=== PATIENT | female | born 1940 | race Caucasian/White ===

== ENCOUNTER 2018-02-16 10:33 | Inpatient (IN) | payer MEDICARE ==
[~2018-02-16] VITALS: Ht 165.1 cm; Wt 71.3 kg
[~2018-02-16 10:33] MED LIST: ADVAIR HFA 115-12 GM IH; CLONAZEPAM1 MG PO; COMBIVENT RESPIM4 GM IH; CYMBALTA30 MG PO; LEVAQUIN500 MG PO; MIRTAZAPINE15 MG PO; OMEPRAZOLE40 MG PO; PREDNISONE5 MG PO; VERAPAMIL ER120 MG PO
[2018-02-16] MEDS ORDERED: ALBUTEROL/IPRATROPIUM 3 ML NEB NEB ONE (10:45)
[2018-02-16] MEDS ORDERED: ALBUTEROL SULF 0.083% NEB SOLN 3 ML NEB NEB STA (11:08)
[2018-02-16] MEDS ORDERED: IPRATROPIUM BROMIDE 0.02% 2.5 ML NEB NEB STA (11:08)
[2018-02-16 11:23] LABS: BASOPHILS % 0.1 % (0.0-1.0); HEMATOCRIT 42.8 % (34.2-44.1); HEMOGLOBIN 14.9 g/dL (12.0-16.0); LYMPHOCYTES # (AUTO) 1.9 (1.0-3.2); LYMPHOCYTES % 28.6 % (18.0-39.1); MEAN CORPUSCULAR HGB CONC 34.8 g/dL (31-35); MEAN CORPUSCULAR VOLUME 89.2 fL (81-99); MONOCYTES # (AUTO) 0.6 (0.2-0.8); MONOCYTES % 9.4 % (4.4-11.3); NEUTROPHILS # (AUTO) 4.1 (2.1-6.9); NEUTROPHILS % 61.6 % (38.7-80.0); PLATELET COUNT 181 x10e3/uL (140-360); RED CELL DISTRIBUTION WIDTH 12.8 % (11.7-14.4)
[2018-02-16 11:27] LABS: INR 1.02; PROTHROMBIN TIME 12.6 seconds (11.9-14.5)
[2018-02-16] MEDS ORDERED: METHYLPREDNISOLONE SOD SUCC 125 MG/2ML VIAL IV ONE (11:30)
[2018-02-16 11:34] LABS: ALBUMIN 3.9 g/dL (3.5-5.0); ALBUMIN/GLOBULIN RATIO 1.1 (0.8-2.0); ANION GAP 12.1 mmol/L (8-16); CALCIUM 9.8 mg/dL (8.4-10.2); CREATININE, SERUM 0.93 mg/dL (0.57-1.11); POTASSIUM 4.1 mmol/L (3.5-5.1)
[2018-02-16 11:41] LABS: CREATINE KINASE MB 3.6 ng/mL (0-5.0)
[2018-02-16 11:57] LABS: LYMPHOCYTES % (MANUAL) 15 % (19-48); MONOCYTES % (MANUAL) 7 % (3.4-9.0); NEUTROPHILS % (MANUAL) 70 % (40-74)
[2018-02-16 11:58] LABS: ANISOCYTOSIS SLIGHT; PLATELET ESTIMATE ADEQUATE; PLATELET MORPHOLOGY COMMENT NORMAL; POIKILOCYTOSIS SLIGHT; RBC MORPHOLOGY COMMENT NORMAL
--- NOTE | 2018-02-16 12:21 | Diagnostic Imaging Report ---
PROCEDURE: CHEST SINGLE (PORTABLE) COMPARISON: Patients [facility], DX, CHEST 2 VIEWS, 03/21/2017, 14:14. INDICATIONS: SHORTNESS OF BREATH, COPD FINDINGS: LUNGS: No consolidations or edema. The lungs are hyperexpanded. PLEURA: No effusions or pneumothorax. HEART \T\ MEDIASTINUM: The heart is within normal size-limits. Calcification within the aortic knob. BONES \T\ SOFT TISSUES: No acute findings. CONCLUSION: No acute thoracic abnormality. Raheel Gilliam D.O. Dictated by: Raheel Gilliam D.O. on 02/16/2018 at 12:21 Electronically approved by: Raheel Gilliam D.O. on 02/16/2018 at 12:21
[2018-02-16] MEDS ORDERED: LEVOFLOXACIN 500MG/D5W 100ML IV SCH (12:45)
[2018-02-16] MEDS ORDERED: LEVOFLOXACIN 500MG/D5W 100ML 100 ML IV SCH (13:00)
--- OUTSIDE RECORDS SUMMARY | 2018-02-16 13:44 | XMS REPORT ---
[facility] Address Unknown Phone Unavailable Care Team Providers Care Assistant Quality Manager Name Role Phone FELIPE BARNES Unavailable Unavailable Problems This patient has no known problems. Allergies, Adverse Reactions, Alerts This patient has no known allergies or adverse reactions. Medications This patient has no known medications. Results Test Description Test Time Test Comments Text Results Atomic Results Result Comments CHEST SINGLE (PORTABLE) [place] [address] Patient Name: SHERRY GRAMAJO MR #: [id number] : 1940 Age/Sex: 77/F Req #: [id number] Adm Physician: Ordered by: FELIPE BARNES MD Report #: [id number] Location: ER Room/Bed: Procedure: [id number] DX/CHEST SINGLE (PORTABLE) Exam Date: 02/16/18 Exam Time: 1125 REPORT STATUS: Signed PROCEDURE: CHEST SINGLE (PORTABLE) COMPARISON: [facility], DX, CHEST 2 VIEWS , 03/21/2017, 14:14. INDICATIONS: SHORTNESS OF BREATH, COPD FINDINGS: LUNGS: No consolidations or edema. The lungs are hyperexpanded. PLEURA: No effusions or pneumothorax. HEART T MEDIASTINUM: The heart is within normal size-limits. Calcification within the aortic knob. BONES T SOFT TISSUES: No acute findings. CONCLUSION: No acute thoracic abnormality. Davian Gilliam D.O. Dictated by: Davian Gilliam D.O. on 02/16/2018 at 12:21 Electronically approved by: Davian Gilliam D.O. on 02/16/2018 at 12:21 Dictated By: DAVIAN GILLIAM DO 1221 Transcribed By: PACO on 02/16/18 1221 COPY TO: FELIPE BARNES MD
[2018-02-16] MEDS ORDERED: METHYLPREDNISOLONE SOD SUCC 125 MG/2ML VIAL IV SCH (14:00)
[2018-02-16] MEDS ORDERED: ZOLPIDEM TARTRATE 10 MG TAB PO PRN (14:45)
[2018-02-16] MEDS: DOXYCYCLINE 100MG/NS 100ML 100 ML IV SCH (15:20)
[2018-02-16] MEDS: ALBUTEROL/IPRATROPIUM 3 ML NEB NEB SCH ×3 (19:40→22:55)
[2018-02-16] MEDS: FLUTICASONE/SALMETEROL 115/21 12 GM AERO IH SCH (21:39)
[2018-02-16] MEDS: METHYLPREDNISOLONE SOD SUCC 125 MG/2ML VIAL IV SCH (21:51)
[2018-02-16] MEDS: HEPARIN SOD (PORCINE) 5,000 UNIT/ML VIAL SC SCH (21:51)
[2018-02-16 22:22] LABS: CREATINE KINASE 63 IU/L (29-168)
[2018-02-17] VITALS (9 sets, daily range): BP systolic 126–157; BP diastolic 68–98
[2018-02-17] MEDS: ALBUTEROL/IPRATROPIUM 3 ML NEB NEB SCH ×6 (00:02→19:30)
[2018-02-17] MEDS: DOXYCYCLINE 100MG/NS 100ML 100 ML IV SCH ×2 (04:05→15:10)
[2018-02-17] MEDS ORDERED: SODIUM CHLORIDE 0.9% 250ML 250 ML ONE (04:14)
[2018-02-17 06:29] LABS: BASOPHILS % 0.2 % (0.0-1.0); HEMATOCRIT 40.8 % (34.2-44.1); HEMOGLOBIN 13.6 g/dL (12.0-16.0); LYMPHOCYTES # (AUTO) 0.7 (1.0-3.2); LYMPHOCYTES % 14.4 % (18.0-39.1); MEAN CORPUSCULAR HEMOGLOBIN 30.3 pg (28-32); MEAN CORPUSCULAR HGB CONC 33.3 g/dL (31-35); MEAN CORPUSCULAR VOLUME 90.9 fL (81-99); MONOCYTES # (AUTO) 0.1 (0.2-0.8); MONOCYTES % 1.6 % (4.4-11.3); NEUTROPHILS # (AUTO) 4.3 (2.1-6.9); NEUTROPHILS % 83.6 % (38.7-80.0); PLATELET COUNT 162 x10e3/uL (140-360); RED BLOOD COUNT 4.49 x10e6/uL (3.6-5.1); RED CELL DISTRIBUTION WIDTH 12.8 % (11.7-14.4)
[2018-02-17 06:57] LABS: CREATINE KINASE 57 IU/L (29-168)
[2018-02-17 07:34] LABS: ANION GAP 14.9 mmol/L (8-16); CALCIUM 9.5 mg/dL (8.4-10.2); CREATININE, SERUM 0.95 mg/dL (0.57-1.11); POTASSIUM 4.9 mmol/L (3.5-5.1)
[2018-02-17 07:46] LABS: LYMPHOCYTES % (MANUAL) 14 % (19-48); MONOCYTES % (MANUAL) 1 % (3.4-9.0); NEUTROPHILS % (MANUAL) 84 % (40-74)
[2018-02-17 07:49] LABS: PLATELET ESTIMATE ADEQUATE; PLATELET MORPHOLOGY COMMENT NORMAL; RBC MORPHOLOGY COMMENT NORMAL
[2018-02-17] MEDS: DULOXETINE HCL 30 MG DELAYED RELEASE PO SCH (08:56)
[2018-02-17] MEDS: METHYLPREDNISOLONE SOD SUCC 125 MG/2ML VIAL IV SCH ×2 (08:56→20:59)
[2018-02-17] MEDS: VERAPAMIL HCL 120 MG TABSR PO SCH (08:56)
[2018-02-17] MEDS: PANTOPRAZOLE SOD 40 MG TABEC PO SCH (08:56)
[2018-02-17] MEDS: HEPARIN SOD (PORCINE) 5,000 UNIT/ML VIAL SC SCH ×2 (08:57→21:01)
[2018-02-17] MEDS: FLUTICASONE/SALMETEROL 115/21 12 GM AERO IH SCH ×2 (08:58→17:00)
[2018-02-17] MEDS ORDERED: VERAPAMIL HCL 120 MG TABSR PO SCH (09:00)
[2018-02-17] MEDS: CLONAZEPAM 1 MG TAB PO PRN (20:59)
[2018-02-18] VITALS (9 sets, daily range): BP systolic 116–162; BP diastolic 68–98
[2018-02-18] MEDS: GUAIFENESIN/CODEINE 10 ML CUP PO PRN ×2 (01:07→20:03)
[2018-02-18] MEDS: DOXYCYCLINE 100MG/NS 100ML 100 ML IV SCH ×2 (03:23→15:20)
[2018-02-18] MEDS: ALBUTEROL/IPRATROPIUM 3 ML NEB NEB SCH ×6 (03:28→22:55)
[2018-02-18] MEDS: FLUTICASONE/SALMETEROL 115/21 12 GM AERO IH SCH ×3 (08:32→09:00)
[2018-02-18] MEDS: PANTOPRAZOLE SOD 40 MG TABEC PO SCH (08:58)
[2018-02-18] MEDS: DULOXETINE HCL 30 MG DELAYED RELEASE PO SCH (08:58)
[2018-02-18] MEDS: HEPARIN SOD (PORCINE) 5,000 UNIT/ML VIAL SC SCH ×2 (08:58→20:13)
[2018-02-18] MEDS: METHYLPREDNISOLONE SOD SUCC 125 MG/2ML VIAL IV SCH ×2 (08:58→20:13)
[2018-02-18] MEDS: VERAPAMIL HCL 120 MG TABSR PO SCH (08:58)
[2018-02-18] MEDS: CLONAZEPAM 1 MG TAB PO PRN (20:48)
[2018-02-19] MEDS: DOXYCYCLINE 100MG/NS 100ML 100 ML IV SCH ×2 (02:16→14:42)
[2018-02-19] MEDS: ALBUTEROL/IPRATROPIUM 3 ML NEB NEB SCH ×6 (02:45→23:10)
[2018-02-19 04:07] VITALS: BP 148/74
[2018-02-19 08:19] VITALS: BP 145/72
[2018-02-19 08:20] VITALS: BP 145/72
[2018-02-19] MEDS: FLUTICASONE/SALMETEROL 115/21 12 GM AERO IH SCH ×2 (09:00→17:28)
[2018-02-19] MEDS: VERAPAMIL HCL 120 MG TABSR PO SCH (09:10)
[2018-02-19] MEDS: PANTOPRAZOLE SOD 40 MG TABEC PO SCH (09:10)
[2018-02-19] MEDS: DULOXETINE HCL 30 MG DELAYED RELEASE PO SCH (09:10)
[2018-02-19] MEDS: METHYLPREDNISOLONE SOD SUCC 125 MG/2ML VIAL IV SCH ×2 (09:10→21:33)
[2018-02-19] MEDS: HEPARIN SOD (PORCINE) 5,000 UNIT/ML VIAL SC SCH ×2 (09:11→21:33)
[2018-02-19] MEDS: GUAIFENESIN/CODEINE 10 ML CUP PO PRN (09:21)
[2018-02-19 11:00] VITALS: BP 129/63
[2018-02-19] MEDS ORDERED: MAGNESIUM HYDROXIDE 30 ML UDC PO PRN (11:30)
[2018-02-19 15:15] VITALS: BP 126/68
[2018-02-19 20:26] VITALS: BP 139/69
[2018-02-19] MEDS: CLONAZEPAM 1 MG TAB PO PRN (21:42)
[2018-02-20] VITALS (11 sets, daily range): BP systolic 93–154; BP diastolic 64–81
[2018-02-20] MEDS: ALBUTEROL/IPRATROPIUM 3 ML NEB NEB SCH ×6 (02:25→23:15)
[2018-02-20] MEDS: DOXYCYCLINE 100MG/NS 100ML 100 ML IV SCH ×2 (02:53→14:30)
--- NOTE | 2018-02-20 06:39 | Diagnostic Imaging Report ---
CHEST SINGLE (PORTABLE), 02/20/2018 6:30 AM Technique: CHEST SINGLE (PORTABLE) Comparison: 02/16/2018, 03/21/2017 Clinical history: Respiratory failure Findings: See Impression Impression: 1. Stable cardiomediastinal silhouette with prominent ascending aortic contour. 2. No consolidation or edema. No significant effusion. Signed by: Dr Hermelinda Crane MD on 02/20/2018 6:35 AM
[2018-02-20 07:00] LABS: BASOPHILS % 0.3 % (0.0-1.0); HEMATOCRIT 38.8 % (34.2-44.1); HEMOGLOBIN 13.2 g/dL (12.0-16.0); LYMPHOCYTES # (AUTO) 0.6 (1.0-3.2); LYMPHOCYTES % 8.8 % (18.0-39.1); MEAN CORPUSCULAR VOLUME 91.1 fL (81-99); MONOCYTES # (AUTO) 0.2 (0.2-0.8); MONOCYTES % 2.3 % (4.4-11.3); NEUTROPHILS # (AUTO) 6.1 (2.1-6.9); NEUTROPHILS % 86.9 % (38.7-80.0); PLATELET COUNT 187 x10e3/uL (140-360); RED BLOOD COUNT 4.26 x10e6/uL (3.6-5.1); RED CELL DISTRIBUTION WIDTH 12.5 % (11.7-14.4)
[2018-02-20] MEDS: FLUTICASONE/SALMETEROL 115/21 12 GM AERO IH SCH ×2 (07:15→19:45)
[2018-02-20 07:43] LABS: ALANINE AMINOTRANSFERASE 18 IU/L (0-55); ALBUMIN 3.5 g/dL (3.5-5.0); ALBUMIN/GLOBULIN RATIO 1.3 (0.8-2.0); ALKALINE PHOSPHATASE 61 IU/L (40-150); ANION GAP 11.1 mmol/L (8-16); BLOOD UREA NITROGEN 27 mg/dL (7-26); BUN/CREATININE RATIO 33 (6-25); CALCIUM 9.3 mg/dL (8.4-10.2); CARBON DIOXIDE 32 mmol/L (22-29); CHLORIDE 104 mmol/L (98-107); CREATININE, SERUM 0.83 mg/dL (0.57-1.11); EST GLOMERULAR FILTRATION RATE > 60 ML/MIN (60-); GLUCOSE 126 mg/dL (74-118); POTASSIUM 5.1 mmol/L (3.5-5.1); SODIUM 142 mmol/L (136-145)
[2018-02-20] MEDS: VERAPAMIL HCL 120 MG TABSR PO SCH (08:40)
[2018-02-20] MEDS: PANTOPRAZOLE SOD 40 MG TABEC PO SCH (08:40)
[2018-02-20] MEDS: METHYLPREDNISOLONE SOD SUCC 125 MG/2ML VIAL IV SCH ×2 (08:40→20:40)
[2018-02-20] MEDS: DULOXETINE HCL 30 MG DELAYED RELEASE PO SCH (08:40)
[2018-02-20] MEDS: HEPARIN SOD (PORCINE) 5,000 UNIT/ML VIAL SC SCH ×2 (08:41→20:41)
[2018-02-20] MEDS: GUAIFENESIN/CODEINE 10 ML CUP PO PRN ×2 (08:50→21:56)
[2018-02-20] MEDS: CLONAZEPAM 1 MG TAB PO PRN (09:07)
--- NOTE | 2018-02-20 10:38 | Diagnostic Imaging Report ---
PROCEDURE:CHEST SINGLE (PORTABLE) TECHNIQUE:Portable AP chest INDICATION:Sudden shortness of breath with COPD COMPARISON:Patients [facility], , CHEST SINGLE (PORTABLE), 02/20/2018, 6:20. FINDINGS: Lungs are clear and symmetrically inflated. No pleural effusions. Normal heart size, mediastinal contour and pulmonary vasculature. Intact skeleton. CONCLUSION: No acute abnormality or interval change from 6:20 AM. Dictated by: Dereck Mckenzie M.D. on 02/20/2018 at 10:39 Electronically approved by: Dereck Mckenzie M.D. on 02/20/2018 at 10:39
[2018-02-20] MEDS ORDERED: SODIUM CHLORIDE 0.9% 250ML 250 ML ONE (14:16)
--- NOTE | 2018-02-20 15:01 | Consultation ---
DATE OF CONSULTATION: February 20, 2018 CARDIOLOGY CONSULTATION Thank you so much for asking me to see this nice lady in consultation. Mr. Hastings is a charming 77-year-old woman known to have COPD for at least 10 years, who tells me that she came to the emergency room after her breathing was getting worse. She was using inhalers and not feeling better. HISTORY OF PRESENT ILLNESS: She denies any chest pain, palpitations or edema. PAST MEDICAL HISTORY: Significant for COPD and hypertension. She reports that she had a cardiac evaluation more than 10 years ago, including cardiac catheterization and that was normal at the time. She denies any previous hospitalizations or any previous surgeries. CURRENT MEDICATIONS: Here in the hospital include: 1. Verapamil SR 240 mg daily. 2. Prednisone 60 mg q.12 h. 3. Salmeterol. 4. Pantoprazole 40 mg daily. 5. . 6. Albuterol. 7. Doxycycline 100 mg b.i.d. PERSONAL/SOCIAL HISTORY: She does not currently smoke. Her is in [facility] care in a [facility]. PHYSICAL EXAMINATION GENERAL: At this time shows a pleasant elderly white woman who appears to be slightly uncomfortable and dyspneic. VITALS: Blood pressure 93/73, pulse is 100 and regular. HEENT: Unremarkable. NECK: No jugular venous distention. No bruits. THORAX: Heart sounds S1 and S2 equal. No murmurs audible. LUNGS: Have fairly loud bilateral wheezing and pops. Air movement is good. ABDOMEN: Protuberant. Normal bowel sounds. Nontender. EXTREMITIES: No cyanosis, clubbing or edema. EKG on the chart shows sinus rhythm without S/T or T-wave changes. Troponins are normal. BUN 27, creatinine 0.8, glucose 126. Hemoglobin 13.2 and white count 7. ASSESSMENT 1. Chronic obstructive pulmonary disease. 2. Rule out any underlying coronary disease or congestive heart failure: Her troponins are normal. PLAN: Will check echocardiogram today and will consider Cardiolite as she gets to breathing some better. Will check lipid profile, BMP and BNP. Thank for asking me to see this nice lady in consultation. Job#: [id number] RI cc:ASHOK WOOD MD
[2018-02-21] VITALS (7 sets, daily range): BP systolic 123–164; BP diastolic 70–94
[2018-02-21] MEDS: ALBUTEROL/IPRATROPIUM 3 ML NEB NEB SCH ×6 (02:50→23:26)
[2018-02-21] MEDS: DOXYCYCLINE 100MG/NS 100ML 100 ML IV SCH ×2 (02:53→15:49)
[2018-02-21 07:03] LABS: ANION GAP 13.5 mmol/L (8-16); BLOOD UREA NITROGEN 29 mg/dL (7-26); BUN/CREATININE RATIO 37 (6-25); CALCIUM 9.4 mg/dL (8.4-10.2); CARBON DIOXIDE 32 mmol/L (22-29); CHLORIDE 102 mmol/L (98-107); CHOL/HDL RATIO 2.6 (3.0-3.6); CHOLESTEROL 215 MD/DL (0-199); CREATININE, SERUM 0.78 mg/dL (0.57-1.11); EST GLOMERULAR FILTRATION RATE > 60 ML/MIN (60-); GLUCOSE 124 mg/dL (74-118); HDL CHOLESTEROL 82 MG/DL (40-60); LDL CHOLESTEROL 107 MG/DL (60-130); POTASSIUM 4.5 mmol/L (3.5-5.1); SODIUM 143 mmol/L (136-145); TRIGLYCERIDES 130 MG/DL (0-149)
[2018-02-21] MEDS: METHYLPREDNISOLONE SOD SUCC 125 MG/2ML VIAL IV SCH ×2 (09:52→20:53)
[2018-02-21] MEDS: PANTOPRAZOLE SOD 40 MG TABEC PO SCH (09:53)
[2018-02-21] MEDS: DULOXETINE HCL 30 MG DELAYED RELEASE PO SCH (09:53)
[2018-02-21] MEDS: VERAPAMIL HCL 120 MG TABSR PO SCH (09:53)
[2018-02-21] MEDS: HEPARIN SOD (PORCINE) 5,000 UNIT/ML VIAL SC SCH ×2 (09:53→20:54)
[2018-02-21] MEDS: CLONAZEPAM 1 MG TAB PO PRN (10:30)
[2018-02-21] MEDS: GUAIFENESIN/CODEINE 10 ML CUP PO PRN (10:55)
[2018-02-21] MEDS: FLUTICASONE/SALMETEROL 115/21 12 GM AERO IH SCH ×2 (11:00→18:00)
[2018-02-22] VITALS (7 sets, daily range): BP systolic 136–158; BP diastolic 68–74
[2018-02-22] MEDS: DOXYCYCLINE 100MG/NS 100ML 100 ML IV SCH ×2 (02:23→14:35)
[2018-02-22] MEDS: ALBUTEROL/IPRATROPIUM 3 ML NEB NEB SCH ×6 (03:10→23:00)
[2018-02-22] MEDS: DULOXETINE HCL 30 MG DELAYED RELEASE PO SCH (09:20)
[2018-02-22] MEDS: METHYLPREDNISOLONE SOD SUCC 125 MG/2ML VIAL IV SCH ×2 (09:20→21:12)
[2018-02-22] MEDS: VERAPAMIL HCL 120 MG TABSR PO SCH (09:20)
[2018-02-22] MEDS: PANTOPRAZOLE SOD 40 MG TABEC PO SCH (09:20)
[2018-02-22] MEDS: FLUTICASONE/SALMETEROL 115/21 12 GM AERO IH SCH ×2 (09:21→18:00)
[2018-02-22] MEDS: HEPARIN SOD (PORCINE) 5,000 UNIT/ML VIAL SC SCH ×2 (09:22→21:21)
[2018-02-22] MEDS: CLONAZEPAM 1 MG TAB PO PRN (21:20)
[2018-02-23] VITALS (7 sets, daily range): BP systolic 118–169; BP diastolic 57–81
[2018-02-23] MEDS: ALBUTEROL/IPRATROPIUM 3 ML NEB NEB SCH ×6 (03:00→23:10)
[2018-02-23] MEDS ORDERED: SODIUM CHLORIDE 0.9% 100 ML ONE (03:06)
[2018-02-23] MEDS: DOXYCYCLINE 100MG/NS 100ML 100 ML IV SCH (03:21)
[2018-02-23] MEDS: FLUTICASONE/SALMETEROL 115/21 12 GM AERO IH SCH ×2 (07:44→15:18)
[2018-02-23] MEDS: GUAIFENESIN/CODEINE 10 ML CUP PO PRN (08:50)
[2018-02-23] MEDS: PANTOPRAZOLE SOD 40 MG TABEC PO SCH (08:51)
[2018-02-23] MEDS: DULOXETINE HCL 30 MG DELAYED RELEASE PO SCH (08:51)
[2018-02-23] MEDS: HEPARIN SOD (PORCINE) 5,000 UNIT/ML VIAL SC SCH ×2 (08:51→20:55)
[2018-02-23] MEDS: VERAPAMIL HCL 120 MG TABSR PO SCH (08:51)
[2018-02-23] MEDS: METHYLPREDNISOLONE SOD SUCC 125 MG/2ML VIAL IV SCH ×2 (08:52→20:54)
[2018-02-23] MEDS: CLONAZEPAM 1 MG TAB PO PRN (09:47)
[2018-02-23] MEDS ORDERED: CLONAZEPAM 1 MG TAB PO SCH (15:00)
[2018-02-23] MEDS: CLONAZEPAM 0.5 MG TAB PO SCH ×2 (15:05→20:54)
[2018-02-23] MEDS: DOXYCYCLINE HYCLATE TABLET 100 MG TAB PO SCH (17:00)
[2018-02-24] VITALS (8 sets, daily range): BP systolic 107–172; BP diastolic 56–77
[2018-02-24] MEDS: ALBUTEROL/IPRATROPIUM 3 ML NEB NEB SCH ×6 (00:20→20:35)
--- NOTE | 2018-02-24 03:34 | Progress Note ---
DATE: PULMONARY PROGRESS NOTE The patient has been using BiPAP intermittently. She feels some improvement with this. She remains on Solu-Medrol at 1 mg/kg twice a day. Cardiology was unable to do the chemical stress test because of her respiratory problems. PHYSICAL EXAMINATION VITALS: The patient was afebrile. The vital signs are stable. HEENT: No facial swelling or erythema. LYMPHATIC: No lymphadenopathy. CARDIAC: Regular rate and rhythm with normal S1 and S2. There are no murmurs or rubs. LUNGS: Auscultation of the lungs shows a prolonged expiratory phase with some wheezing. ABDOMEN: Soft and nontender. There is no rebound or guarding. EXTREMITIES: No leg edema or calf tenderness. There is no cyanosis or clubbing. IMPRESSION 1. Frhbo-hl-hlocmcp respiratory failure. 2. Chronic obstructive pulmonary disease with acute exacerbation. 3. Moderate protein-calorie malnutrition. PLAN 1. The family is investigating [facility]. She will probably be a candidate for physical therapy and SNF care. 2. Change to p.o. antibiotic. 3. Wean Solu-Medrol as tolerated. 4. Continue BiPAP intermittently. 5. Nutritional supplements. 6. Physical therapy. 7. Long-term prognosis is poor. Job#: [id number]
[2018-02-24] MEDS: FLUTICASONE/SALMETEROL 115/21 12 GM AERO IH SCH ×2 (07:40→20:35)
[2018-02-24] MEDS: METHYLPREDNISOLONE SOD SUCC 125 MG/2ML VIAL IV SCH ×2 (09:13→22:04)
[2018-02-24] MEDS: VERAPAMIL HCL 120 MG TABSR PO SCH (09:14)
[2018-02-24] MEDS: PANTOPRAZOLE SOD 40 MG TABEC PO SCH (09:14)
[2018-02-24] MEDS: DULOXETINE HCL 30 MG DELAYED RELEASE PO SCH (09:14)
[2018-02-24] MEDS: DOXYCYCLINE HYCLATE TABLET 100 MG TAB PO SCH ×2 (09:14→16:38)
[2018-02-24] MEDS: CLONAZEPAM 0.5 MG TAB PO SCH ×3 (09:14→21:08)
--- NOTE | 2018-02-24 15:09 | Progress Note ---
DATE: PULMONARY PROGRESS NOTE SUBJECTIVE: The patient feels better today. She was walking with Physical Therapy. She has been using her BiPAP at night. OBJECTIVE VITAL SIGNS: The vital signs are stable. She is afebrile. CARDIAC: Exam reveals a regular rate and rhythm with a normal S1 and S2. LUNGS: Auscultation reveals a prolonged expiratory phase. ABDOMEN: Soft and nontender. There is no rebound or guarding. EXTREMITIES: Show no leg edema or calf tenderness. NEUROLOGICAL: Exam shows no focal abnormalities. IMPRESSION 1. Tjzhu-ov-hxmxhwg respiratory failure. 2. Chronic obstructive pulmonary disease with acute exacerbation. 3. Moderate protein calorie malnutrition. PLAN 1. Continue physical therapy. 2. Decrease Solu-Medrol to 30 mg IV q.12. 3. Awaiting placement at SNF. 4. Continue to encourage adequate caloric intake. Dietary has evaluated the patient. Job#: [id number] EV
[2018-02-25] VITALS (9 sets, daily range): BP systolic 125–171; BP diastolic 58–81
[2018-02-25] MEDS: ALBUTEROL/IPRATROPIUM 3 ML NEB NEB SCH ×6 (03:15→22:35)
[2018-02-25] MEDS: FLUTICASONE/SALMETEROL 115/21 12 GM AERO IH SCH ×2 (07:12→20:20)
[2018-02-25] MEDS: DOXYCYCLINE HYCLATE TABLET 100 MG TAB PO SCH ×2 (08:00→16:10)
[2018-02-25] MEDS: CLONAZEPAM 0.5 MG TAB PO SCH ×3 (08:00→20:59)
[2018-02-25] MEDS: PANTOPRAZOLE SOD 40 MG TABEC PO SCH (08:00)
[2018-02-25] MEDS: METHYLPREDNISOLONE SOD SUCC 125 MG/2ML VIAL IV SCH ×2 (08:00→20:59)
[2018-02-25] MEDS: VERAPAMIL HCL 120 MG TABSR PO SCH (08:00)
[2018-02-25] MEDS: DULOXETINE HCL 30 MG DELAYED RELEASE PO SCH (08:00)
[2018-02-25] MEDS ORDERED: GUAIFENESIN/CODEINE 10 ML CUP PO PRN (12:45)
--- NOTE | 2018-02-25 12:52 | Progress Note ---
DATE: PULMONARY PROGRESS NOTE SUBJECTIVE: The patient reports some improvement. She has less dyspnea and less wheezing. She still has cough. PHYSICAL EXAMINATION VITAL SIGNS: Stable. HEENT: No facial swelling or erythema. The nasal mucosa is normal. LYMPHATIC: Examination is normal. CARDIAC: Regular rate and rhythm with normal S1 and S2. LUNGS: Auscultation of the lungs reveals prolonged expiratory phase bilaterally. There is some wheezing. ABDOMEN: Soft and nontender. IMPRESSION 1. Zjpiu-db-opcoxbj respiratory failure. 2. Protein-calorie malnutrition. 3. Chronic obstructive pulmonary disease. PLAN: We have decreased the Solu-Medrol to 30 mg. Continue physical therapy. The patient is scheduled to go to SNF. She may be a candidate for noninvasive ventilator at home. Job#: [id number]
[2018-02-26] VITALS (8 sets, daily range): BP systolic 119–173; BP diastolic 58–83
[2018-02-26] MEDS: ALBUTEROL/IPRATROPIUM 3 ML NEB NEB SCH ×6 (02:50→22:15)
[2018-02-26] MEDS: FLUTICASONE/SALMETEROL 115/21 12 GM AERO IH SCH ×2 (07:07→19:30)
[2018-02-26] MEDS: DULOXETINE HCL 30 MG DELAYED RELEASE PO SCH (08:24)
[2018-02-26] MEDS: VERAPAMIL HCL 120 MG TABSR PO SCH (08:24)
[2018-02-26] MEDS: DOXYCYCLINE HYCLATE TABLET 100 MG TAB PO SCH ×2 (08:24→16:01)
[2018-02-26] MEDS: METHYLPREDNISOLONE SOD SUCC 125 MG/2ML VIAL IV SCH ×2 (08:24→21:05)
[2018-02-26] MEDS: CLONAZEPAM 0.5 MG TAB PO SCH ×3 (08:24→21:05)
[2018-02-26] MEDS: PANTOPRAZOLE SOD 40 MG TABEC PO SCH (08:24)
--- NOTE | 2018-02-26 10:14 | Progress Note ---
DATE: SUBJECTIVE: The patient reports less dyspnea and less wheezing. She has been walking. She is awaiting approval for transfer to [facility]. PHYSICAL EXAMINATION VITAL SIGNS: Stable. HEENT: No facial swelling or erythema. CARDIAC: Regular rate and rhythm with normal S1 and S2. There are no murmurs or rubs. LUNGS: Auscultation of the lungs reveals clear breath sounds bilaterally. There is no wheezing. ABDOMEN: Soft and nontender. There is no rebound or guarding. EXTREMITIES: No leg edema or calf tenderness. There is no cyanosis or clubbing. SKIN: No rashes. NEUROLOGIC: No focal abnormality. IMPRESSION 1. Chronic obstructive pulmonary disease with acute exacerbation. 2. Mlyep-ix-uddrlld respiratory failure. 3. Moderate protein-calorie malnutrition. PLAN 1. Awaiting transfer to [facility]. 2. Continue Solu-Medrol 30 mg IV q.12. 3. Continue current bronchodilators. Job#: [id number]
[2018-02-27] MEDS: ALBUTEROL/IPRATROPIUM 3 ML NEB NEB SCH ×5 (02:35→20:00)
[2018-02-27 04:00] VITALS: BP 144/68
[2018-02-27] MEDS: FLUTICASONE/SALMETEROL 115/21 12 GM AERO IH SCH ×2 (07:11→15:15)
[2018-02-27 08:00] VITALS: BP 120/65
[2018-02-27 08:45] VITALS: BP 120/65
[2018-02-27] MEDS: METHYLPREDNISOLONE SOD SUCC 125 MG/2ML VIAL IV SCH (08:58)
[2018-02-27] MEDS: VERAPAMIL HCL 120 MG TABSR PO SCH (08:59)
[2018-02-27] MEDS: CLONAZEPAM 0.5 MG TAB PO SCH ×3 (08:59→20:55)
[2018-02-27] MEDS: PANTOPRAZOLE SOD 40 MG TABEC PO SCH (08:59)
[2018-02-27] MEDS: DULOXETINE HCL 30 MG DELAYED RELEASE PO SCH (08:59)
[2018-02-27] MEDS: DOXYCYCLINE HYCLATE TABLET 100 MG TAB PO SCH ×2 (10:00→15:27)
[2018-02-27 12:00] VITALS: BP 122/75
--- NOTE | 2018-02-27 14:12 | Progress Note ---
DATE: PULMONARY/CRITICAL CARE PROGRESS NOTE SUBJECTIVE: The patient is feeling better. She is able to walk up and down the hallway. She is not complaining of coughing or wheezing. She is awaiting transfer to [facility]. PHYSICAL EXAMINATION VITAL SIGNS: The patient is afebrile. The vital signs are stable. HEENT: No facial swelling or erythema. CARDIAC: Regular rate and rhythm with normal S1 and S2. There are no murmurs or rubs. LUNGS: Auscultation of the lungs reveals clear breath sounds bilaterally. There is a prolonged expiratory phase. ABDOMEN: Soft and nontender. There is no rebound or guarding. EXTREMITIES: No leg edema or calf tenderness. There is no cyanosis or clubbing. IMPRESSION 1. Ewmjs-xp-stadunc respiratory failure. 2. Moderate protein-calorie malnutrition. 3. Chronic obstructive pulmonary disease. PLAN 1. Continue current therapy. 2. Decrease steroids to prednisone 15 mg p.o. b.i.d. 3. Awaiting transfer to [facility]. Job#: [id number]
[2018-02-27 16:00] VITALS: BP 135/59
[2018-02-27] MEDS ORDERED: PREDNISONE 10 MG TAB PO SCH (17:00)
[2018-02-27 20:00] VITALS: BP 125/58
[2018-02-28] VITALS (8 sets, daily range): BP systolic 111–136; BP diastolic 57–78
[2018-02-28] MEDS: ALBUTEROL/IPRATROPIUM 3 ML NEB NEB SCH ×7 (00:10→23:05)
[2018-02-28] MEDS: FLUTICASONE/SALMETEROL 115/21 12 GM AERO IH SCH ×2 (06:55→19:38)
[2018-02-28] MEDS: METHYLPREDNISOLONE SOD SUCC 40 MG/ML VIAL IV SCH ×2 (08:52→21:41)
[2018-02-28] MEDS: DOXYCYCLINE HYCLATE TABLET 100 MG TAB PO SCH ×2 (09:00→15:39)
[2018-02-28] MEDS: CLONAZEPAM 0.5 MG TAB PO SCH ×3 (09:00→21:41)
[2018-02-28] MEDS: PANTOPRAZOLE SOD 40 MG TABEC PO SCH (09:00)
[2018-02-28] MEDS: DULOXETINE HCL 30 MG DELAYED RELEASE PO SCH (09:00)
[2018-02-28] MEDS: VERAPAMIL HCL 120 MG TABSR PO SCH (09:00)
--- NOTE | 2018-02-28 09:12 | Progress Note ---
DATE: PULMONARY CRITICAL CARE PROGRESS NOTE The patient had more difficulty breathing last night. She required BiPAP again. This morning I switched her back to intravenous steroids. Also, ordered a chest x-ray along with comprehensive metabolic panel and a CBC. PHYSICAL EXAMINATION VITALS: The patient is afebrile. The vital signs are stable. HEENT: Shows no facial swelling or erythema. The nasal mucosa is normal. The oropharynx is normal. LYMPHATIC: Shows no submandibular, cervical or supraclavicular adenopathy. CARDIAC: Reveals a regular rate and rhythm with a normal S1 and S2. There are no murmurs or rubs. LUNGS: Auscultation of the lungs reveals a prolonged expiratory phase. There is some wheezing. ABDOMEN: Soft and nontender. There is no rebound or guarding. IMPRESSION 1. Fdgif-ni-nggprdv respiratory failure. 2. Mild protein calorie malnutrition. 3. Chronic obstructive pulmonary disease. PLAN 1. The patient will be switched back to intravenous Solu-Medrol. 2. Continue aggressive bronchodilator therapy. 3. BiPAP at night and as needed during the day. 4. I have contacted the patient's insurance company at [phone] in order to try to arrange for SNF placement. I have not received a call back. I was unable to speak to the medical biller coder. I am awaiting a return call. Job#: [id number] ANALI
--- NOTE | 2018-02-28 09:15 | Diagnostic Imaging Report ---
PROCEDURE:CHEST SINGLE (PORTABLE) TECHNIQUE:Portable AP chest INDICATION:COPD COMPARISON:None. FINDINGS: Symmetric hyperinflation. Lungs otherwise clear. No pleural effusions. Normal heart size and central vasculature. Intact skeleton. CONCLUSION: Hyperinflation consistent with air trapping from COPD. Dictated by: Dereck Mckenzie M.D. on 02/28/2018 at 9:16 Electronically approved by: Dereck Mckenzie M.D. on 02/28/2018 at 9:16
[2018-02-28 09:47] LABS: BASOPHILS % 0.2 % (0.0-1.0); HEMOGLOBIN 13.3 g/dL (12.0-16.0); LYMPHOCYTES # (AUTO) 1.5 (1.0-3.2); LYMPHOCYTES % 13.6 % (18.0-39.1); MEAN CORPUSCULAR HEMOGLOBIN 30.5 pg (28-32); MEAN CORPUSCULAR HGB CONC 34.1 g/dL (31-35); MEAN CORPUSCULAR VOLUME 89.4 fL (81-99); MONOCYTES # (AUTO) 0.9 (0.2-0.8); MONOCYTES % 7.6 % (4.4-11.3); NEUTROPHILS # (AUTO) 8.8 (2.1-6.9); PLATELET COUNT 98 x10e3/uL (140-360); RED BLOOD COUNT 4.36 x10e6/uL (3.6-5.1); RED CELL DISTRIBUTION WIDTH 12.2 % (11.7-14.4)
[2018-02-28 10:07] LABS: ALANINE AMINOTRANSFERASE 26 IU/L (0-55); ALBUMIN 3.1 g/dL (3.5-5.0); ALBUMIN/GLOBULIN RATIO 1.2 (0.8-2.0); ALKALINE PHOSPHATASE 47 IU/L (40-150); ANION GAP 10.9 mmol/L (8-16); BLOOD UREA NITROGEN 30 mg/dL (7-26); BUN/CREATININE RATIO 38 (6-25); CALCIUM 8.7 mg/dL (8.4-10.2); CARBON DIOXIDE 32 mmol/L (22-29); CHLORIDE 100 mmol/L (98-107); EST GLOMERULAR FILTRATION RATE > 60 ML/MIN (60-); GLUCOSE 104 mg/dL (74-118); POTASSIUM 3.9 mmol/L (3.5-5.1); SODIUM 139 mmol/L (136-145)
[2018-03-01] VITALS: BP 121/65
[2018-03-01 01:36] VITALS: BP 121/65
[2018-03-01] MEDS: ALBUTEROL/IPRATROPIUM 3 ML NEB NEB SCH ×2 (03:10→07:35)
[2018-03-01 04:00] VITALS: BP 138/65
[2018-03-01 07:30] VITALS: BP 146/74
[2018-03-01 07:36] VITALS: BP 146/74
[2018-03-01] MEDS: METHYLPREDNISOLONE SOD SUCC 40 MG/ML VIAL IV SCH (09:38)
[2018-03-01] MEDS: VERAPAMIL HCL 120 MG TABSR PO SCH (09:39)
[2018-03-01] MEDS: DULOXETINE HCL 30 MG DELAYED RELEASE PO SCH (09:39)
[2018-03-01] MEDS: DOXYCYCLINE HYCLATE TABLET 100 MG TAB PO SCH (09:39)
[2018-03-01] MEDS: PANTOPRAZOLE SOD 40 MG TABEC PO SCH (09:39)
[2018-03-01] MEDS: CLONAZEPAM 0.5 MG TAB PO SCH (09:39)
[2018-03-01 11:38] VITALS: BP 131/94
== END 2018-03-01 14:10 | disposition home or self-care (01) | DRG 189 ==
LOC: ER 10:35 → ERHOLD 13:40 → IMCU 22:51 → MED/SURG3 02-22 16:07
PROVIDERS: ADMIT Internal Medicine Critical Care Medicine; ATTEND Internal Medicine Critical Care Medicine
PROC: 5A09357 Assistance with Respiratory Ventilation, Less than 24 Consecutive Hours, Continuous Positive Airway Pressure (ICD-10-PCS; principal; 2018-02-17)
DX: J96.20 Acute and chronic respiratory failure, unspecified whether with hypoxia or hypercapnia (principal); E44.0 Moderate protein-calorie malnutrition; J44.1 Chronic obstructive pulmonary disease with (acute) exacerbation; I10 Essential (primary) hypertension; Z87.891 Personal history of nicotine dependence; Z79.52 Long term (current) use of systemic steroids; Z88.2 Allergy status to sulfonamides; Z91.041 Radiographic dye allergy status
CPT/HCPCS: 36415; 51700; 71045; 80048; 80053; 80061; 82550; 82553; 82948; 83880; 84134; 84484; 85025; 85610; 85730; 87040; 93005; 93306; 94640; 94660; 97139; 99284; J1644; J1956; J2920; J2930; J7050

== ENCOUNTER 2019-03-19 12:19 | Emergency (ER) | payer MEDICARE ==
[~2019-03-19] VITALS: Ht 165.1 cm; Wt 71.2 kg
--- OUTSIDE RECORDS SUMMARY | 2019-03-19 12:23 | XMS REPORT ---
Author Author Nelson Quinn Organization [employer] Address Unknown Phone Unavailable Care Team Providers Care Molder Foam Rubber Name Role Phone Nelson Quinn Unavailable Allergies, Adverse Reactions, Alerts Substance Reaction Event Type Iodine thorat swells Drug Allergy Problems Problem Type Condition Code Onset Dates Condition Status Assessment Lumbar radiculopathy M54.16 Active Medications Medication Code System Code Instructions Start Date End Date Status Dosage Omeprazole [facility] [address]-92 40 MG Orally Once a day Active 1 capsule Cymbalta [facility] [address]-66 60 MG Orally Once a day Active 1 capsule Verapamil HCl [facility] [address]-71 240 MG Orally Once a day Active 1 tablet Clonazepam [facility] [address]-43 0.5 MG Orally Twice a day Active 1 tablet Advair HFA [facility] [address]-27 115-21 MCG/ACT Inhalation Twice a day Active 2 puffs Vital Signs Date/Time: Aug 17, 2017 BMI 20.97 Index Weight 141.2 lbs Height 68.8 in Temperature 97.2 F Cardiac Monitoring Heart Rate 104 /min Blood Pressure Diastolic 56 mm Hg Blood Pressure Systolic 80 mm Hg Results No Known Results Summary Purpose [employer] Submission
--- OUTSIDE RECORDS SUMMARY | 2019-03-19 12:23 | XMS REPORT | Continuity of Care Document ---
Author Author [facility] Interface Address Unknown Phone Unavailable Problems Problem Status Onset Date Classification Date Reported Comments Source M25.552 - PAIN IN LEFT HIP Active 02/15/2019 [facility] UNK Active 12/05/[address] [facility] Acid reflux Active Problem 02/18/[address] [facility] [place] Anxiety Active Problem 02/18/[address] [facility] [place] Arthritis Active Problem 02/18/[address] [facility], [facility] [place] Back pain Active Problem 02/18/[address] [facility] [place] COPD Resolved Problem 02/18/[address] [facility] [place] COPD - Chronic obstructive pulmonary disease Active Problem 02/18/[address] [facility], [facility] [place] Emphysema of lung Active Problem 02/18/[address] [facility], [facility] [place] GERD - Gastro-esophageal reflux disease Active Problem 02/18/[address] [facility], [facility] [place] HTN (<span [id number]">Confirmed</span>) Resolved Problem 02/18/[address] [facility] [place] Hypercholesteremia Resolved Problem 02/18/[address] [facility] [place] Hypertension Active Problem 02/18/[address] [facility] [place] Motion sickness Active Problem 02/18/[address] [facility] [place] TIA Resolved Problem 02/18/[address] [facility], [facility] [place] Lumbar radiculopathy Active Diagnosis 09/19/2017 [facility]ng[facility] Salmeron COPD exacerbation Active Problem 03/01/2018 [facility] Medications Medication Details Route Status Patient Instructions Ordering Provider Order Date Source Levofloxacin (Levaquin) 500 Mg Tablet, 500 Mg Oral Daily Active 02/16/2018 [facility] Mirtazapine 15 Mg Tab, 15 Mg Oral Bedtime Active 02/16/2018 [facility] Flumazenil 0.1 mg, Route: IVP, Q5Min, Dosing Weight 76.364, kg, PRN Other -See Comment, Start date: 12/17/14 8:02:00, Duration: 30 day, Stop date: 01/16/15 8:01:00 Inactive 12/17/[address] [facility] Naloxone 0.1 mg, Route: IVP, Q2MIN, Dosing Weight 76.364, kg, PRN Narcotic Reversal, Start date: 12/17/14 8:02:00, Duration: 4 doses or times, Stop date: Limited # of times Inactive 12/17/[address] [facility] Zofran 4 mg, 2 mL, Route: IV, Drug form: INJ, ONCE, Dosing Weight 76.364, kg, Start date: 12/17/14 7:55:00, Stop date: 12/17/14 7:55:00Notes: (Same as: Zofran) Inactive 12/17/[address] [facility] Calcium Chloride 0.0014 MEQ/ML / Potassium Chloride 0.004 MEQ/ML / Sodium Chloride 0.103 MEQ/ML / Sodium Lactate 0.028 MEQ/ML Injectable Solution 1,000 mL, Rate: 25 ml/hr, Infuse over: 40 hr, Route: IV, Dosing Weight 76.364 kg, Total Volume: 1,000, Start date: 12/17/14 6:55:00, Duration: 30 day, Stop date: 01/16/15 6:54:00 Inactive 12/17/[address] [facility] Omeprazole 1 capsule Orally Active 40 MG Orally Once a day [facility] Ángel Salmeron Cymbalta 1 capsule Orally Active 60 MG Orally Once a day [facility] Ángel Salmeron Verapamil HCl 1 tablet Orally Active 240 MG Orally Once a day [facility] Ángel Taylorer Clonazepam 1 tablet Orally Active 0.5 MG Orally Twice a day [facility] Ángel Salmeron Advair HFA 2 puffs Inhalation Active 115-21 MCG/ACT Inhalation Twice a day [facility] Ángel Salmeron Clonazepam 1 Mg Tablet Three Times A Day Active [facility] Duloxetine Hcl (Cymbalta) 30 Mg Capsule.dr Daily Active [facility] Fluticasone/Salmeterol (Advair Hfa 115-21 Mcg Inhaler) 12 Gm Hfa.aer.ad Twice A Day Active [facility] Ipratropium/Albuterol Sulfate (Combivent Respimat Inhal [place]) 4 Gm Aer.w.adap Twice A Day Active [facility] Omeprazole 40 Mg Capsule.dr Daily Active [facility] Prednisone 5 Mg Tablet Daily Active [facility] Verapamil Hcl (Verapamil Er) 120 Mg Cap24h.pel Daily Active [facility] Allergies, Adverse Reactions, Alerts Substance Category Reaction Severity Reaction type Status Date Reported Comments Source Sulfa (Sulfonamide Antibiotics) NAUSEA Mild Allergy to Substance Active 03/11/2010 [facility] Iodine Adverse Reaction thorat swells Adverse Reaction Active 08/17/2017 Ángel Salmeron iodine Assertion Drug allergy Active [facility] sulfa drugs Assertion Drug allergy Active [facility] Immunizations Immunization Date Given Site Status Last Updated Comments Source Results Order Name Results Value Reference Range Date Interpretation Comments Source Knee 3 views DX Knee 3 views DX EXAM: XR LEFT KNEE 3 VIEWS DATE: 02/15/2019 13:42 CDT INDICATION: - chronic pain of left knee COMPARISON: Radiographs of the left knee 11/15/2006 TECHNIQUE: 3 views of the knee FINDINGS: No acute fracture or malalignment is identified. There is narrowing of the medial joint space with small marginal osteophytes. No knee joint effusion is present. No soft tissue abnormality is identified. IMPRESSION: Moderate osteoarthrosis of the left knee, predominantly affecting the medial compartment. 02/15/2019 - - This report was dictated by a Insulation Sprayer/Fellow/Physician Waste Disposal Attendant. I have personally reviewed the images as well as the interpretation and agree with the findings. Read by: Albaro Denis MD Resident/Fellow/Physician Waste Disposal Attendant: Albaro Denis MD Dictated Date/time: 02/15/19 16:03 Electronically Signed by: Delroy Cruz MD 02/15/19 18:23 FINAL REPORT [facility] Hip 2/3 views uni w pelvis DX Hip 2/3 views uni w pelvis DX EXAM: XR LEFT HIP 2 VIEW DATE: 02/15/2019 13:41 CDT INDICATION: - left hip pain COMPARISON: Radiograph left hip 01/16/2006 TECHNIQUE: 2 views of the hip including the pelvis FINDINGS: No acute fracture or malalignment is identified. There is severe superomedial joint space narrowing in the left hip with [id number] articulation. Severe superomedial joint space narrowing is present in the right hip. Subchondral sclerosis and marginal osteophytosis is present in both hips. No soft tissue abnormality is identified. IMPRESSION: Severe osteoarthrosis of the bilateral hips, greater on the left. 02/15/2019 - - This report was dictated by a Insulation Sprayer/Fellow/Physician Waste Disposal Attendant. I have personally reviewed the images as well as the interpretation and agree with the findings. Read by: Albaro Denis MD Resident/Fellow/Physician Waste Disposal Attendant: Albaro Denis MD Dictated Date/time: 02/15/19 15:58 Electronically Signed by: Delroy Cruz MD 02/15/19 18:25 FINAL REPORT [facility] Automated blood basophil count (count/volume) Automated blood basophil count (count/volume) 0.0 0.0 - 0.1 02/28/2018 [facility] Automated blood basophil count as percentage of total leukocytes Automated blood basophil count as percentage of total leukocytes 0.2 0.0 - 1.0 02/28/2018 [facility] Automated blood eosinophil count Automated blood eosinophil count 0.0 0.0 - 0.4 02/28/2018 [facility] Automated blood eosinophil count as percentage of total leukocytes Automated blood eosinophil count as percentage of total leukocytes 0.0 0.0 - 6.0 02/28/2018 [facility] Automated blood hematocrit (volume fraction) Automated blood hematocrit (volume fraction) 39.0 34.2 - 44.1 02/28/2018 [facility] Automated blood lymphocyte count as percentage ot total leukocytes Automated blood lymphocyte count as percentage ot total leukocytes 13.6 18.0 - 39.1 02/28/2018 [facility] Automated blood monocyte count as percentage of total leukocytes Automated blood monocyte count as percentage of total leukocytes 7.6 4.4 - 11.3 02/28/2018 [facility] Automated blood neutrophil count Automated blood neutrophil count 8.8 2.1 - 6.9 02/28/2018 [facility] Automated blood platelet count (count/volume) Automated blood platelet count (count/volume) 98 140 - 360 02/28/2018 [facility] Automated blood segmented neutrophil count as percentage of total leukocytes Automated blood segmented neutrophil count as percentage of total leukocytes 77.0 38.7 - 80.0 02/28/2018 [facility] Automated erythrocyte mean corpuscular hemoglobin (mass per erythrocyte) Automated erythrocyte mean corpuscular hemoglobin (mass per erythrocyte) 30.5 28 - 32 02/28/2018 [facility] Automated erythrocyte mean corpuscular hemoglobin concentration measurement (mass/volume) Automated erythrocyte mean corpuscular hemoglobin concentration measurement (mass/volume) 34.1 31 - 35 02/28/2018 [facility] Automated erythrocyte mean corpuscular volume Automated erythrocyte mean corpuscular volume 89.4 81 - 99 02/28/2018 [facility] Blood erythrocytes automated count (number/volume) Blood erythrocytes automated count (number/volume) 4.36 3.6 - 5.1 02/28/2018 [facility] Blood hemoglobin measurement (moles/volume) Blood hemoglobin measurement (moles/volume) 13.3 12.0 - 16.0 02/28/2018 [facility] Blood leukocytes automated count (number/volume) Blood leukocytes automated count (number/volume) 11.36 4.8 - 10.8 02/28/2018 [facility] Blood lymphocytes count (number/volume) Blood lymphocytes count (number/volume) 1.5 1.0 - 3.2 02/28/2018 [facility] Blood monocytes automated count (number/volume) Blood monocytes automated count (number/volume) 0.9 0.2 - 0.8 02/28/2018 [facility] Estimated glomerular filtration rate (GFR) determination Estimated glomerular filtration rate (GFR) determination null 60 02/28/2018 [facility] Glucose measurement Glucose measurement 104 74 - 118 02/28/2018 [facility] Plasma globulin measurement (mass/volume) Plasma globulin measurement (mass/volume) 2.5 2.3 - 3.5 02/28/2018 [facility] Serum or plasma alanine aminotransferase measurement (enzymatic activity/volume) Serum or plasma alanine aminotransferase measurement (enzymatic activity/volume) 26 0 - 55 02/28/2018 [facility] Serum or plasma albumin measurement (mass/volume) Serum or plasma albumin measurement (mass/volume) 3.1 3.5 - 5.0 02/28/2018 [facility] Serum or plasma albumin/globulin mass ratio Serum or plasma albumin/globulin mass ratio 1.2 0.8 - 2.0 02/28/2018 [facility] Serum or plasma alkaline phosphatase measurement (enzymatic activity/volume) Serum or plasma alkaline phosphatase measurement (enzymatic activity/volume) 47 40 - 150 02/28/2018 [facility] Serum or plasma anion gap Serum or plasma anion gap 10.9 8 - 16 02/28/2018 [facility] Serum or plasma calcium measurement (mass/volume) Serum or plasma calcium measurement (mass/volume) 8.7 8.4 - 10.2 02/28/2018 [facility] Serum or plasma carbon dioxide, total measurement (moles/volume) Serum or plasma carbon dioxide, total measurement (moles/volume) 32 22 - 29 02/28/2018 [facility] Serum or plasma chloride measurement (moles/volume) Serum or plasma chloride measurement (moles/volume) 100 98 - 107 02/28/2018 [facility] Serum or plasma creatinine measurement (mass/volume) Serum or plasma creatinine measurement (mass/volume) 0.80 0.57 - 1.11 02/28/2018 [facility] Serum or plasma potassium measurement (moles/volume) Serum or plasma potassium measurement (moles/volume) 3.9 3.5 - 5.1 02/28/2018 [facility] Serum or plasma protein measurement (mass/volume) Serum or plasma protein measurement (mass/volume) 5.6 6.5 - 8.1 02/28/2018 [facility] Serum or plasma sodium measurement (moles/volume) Serum or plasma sodium measurement (moles/volume) 139 136 - 145 02/28/2018 [facility] Serum or plasma total bilirubin measurement (mass/volume) Serum or plasma total bilirubin measurement (mass/volume) 0.7 0.2 - 1.2 02/28/2018 [facility] Serum or plasma urea nitrogen measurement (mass/volume) Serum or plasma urea nitrogen measurement (mass/volume) 30 7 - 26 02/28/2018 [facility] Serum or plasma urea nitrogen/creatinine mass ratio Serum or plasma urea nitrogen/creatinine mass ratio 38 6 - 25 02/28/2018 [facility] Red Cell Distribution Width 12.2 11.7 - 14.4 02/28/2018 [facility] IM GRANULOCYTES % 1.6 0.0 - 1.0 02/28/2018 [facility] Absolute Immature Granulocyte (auto 0.18 0 - 0.1 02/28/2018 [facility] Aspartate Amino Transf (AST/SGOT) 12 5 - 34 02/28/2018 [facility] Serum or plasma cholesterol in HDL measurement (mass/volume) Serum or plasma cholesterol in HDL measurement (mass/volume) 82 40 - 60 02/21/2018 [facility] Serum or plasma cholesterol in LDL measurement (mass/volume) Serum or plasma cholesterol in LDL measurement (mass/volume) 107 60 - 130 02/21/2018 [facility] Serum or plasma cholesterol measurement (mass/volume) Serum or plasma cholesterol measurement (mass/volume) 215 0 - 199 02/21/2018 [facility] Serum or plasma total cholesterol/cholesterol in HDL mass ratio Serum or plasma total cholesterol/cholesterol in HDL mass ratio 2.6 3.0 - 3.6 02/21/2018 [facility] Serum or plasma triglyceride measurement (mass/volume) Serum or plasma triglyceride measurement (mass/volume) 130 0 - 149 02/21/2018 [facility] B-Type Natriuretic Peptide 22.7 0 - 100 02/21/2018 [facility] Capillary blood glucose measurement by glucometer (mass/volume) Capillary blood glucose measurement by glucometer (mass/volume) 138 70 - 120 02/18/2018 [facility] Blood lymphocytes variant count (number/volume) Blood lymphocytes variant count (number/volume) 1 02/17/2018 [facility] Blood platelets count by estimate (number/volume) Blood platelets count by estimate (number/volume) ADEQUATE 02/17/2018 [facility] Manual blood lymphocytes/100 leukocytes Manual blood lymphocytes/100 leukocytes 14 19 - 48 02/17/2018 [facility] Manual blood monocytes/100 leukocytes Manual blood monocytes/100 leukocytes 1 3.4 - 9.0 02/17/2018 [facility] Manual blood neutrophils/100 leukocytes Manual blood neutrophils/100 leukocytes 84 40 - 74 02/17/2018 [facility] Platelet morphology Platelet morphology NORMAL 02/17/2018 [facility] RBC morphology RBC morphology NORMAL 02/17/2018 [facility] Serum or plasma creatine kinase MB measurement (mass/volume) Serum or plasma creatine kinase MB measurement (mass/volume) 4.20 0 - 5.0 02/17/2018 [facility] Serum or plasma creatine kinase measurement (enzymatic activity/volume) Serum or plasma creatine kinase measurement (enzymatic activity/volume) 57 29 - 168 02/17/2018 [facility] Serum or plasma prealbumin measurement (mass/volume) Serum or plasma prealbumin measurement (mass/volume) 19 9 - 32 02/17/2018 [facility] Troponin I measurement by highly sensitive enzyme immunoassay Troponin I measurement by highly sensitive enzyme immunoassay null 0 - 0.300 02/17/2018 [facility] Differential Total Cells Counted 100 02/17/2018 [facility] Activated partial thromboplastin time (aPTT) in platelet poor plasma bycoagulation assay Activated partial thromboplastin time (aPTT) in platelet poor plasma bycoagulation assay 22.1 23.8 - 35.5 02/16/2018 [facility] Blood anisocytosis detection by light microscopy Blood anisocytosis detection by light microscopy SLIGHT 02/16/2018 [facility] Blood culture Blood culture NO GROWTH AFTER 5 DAYS, FINAL REPORT 02/16/2018 [facility] Blood poikilocytosis detection by light microscopy Blood poikilocytosis detection by light microscopy SLIGHT 02/16/2018 [facility] INR in Platelet poor plasma by Coagulation assay INR in Platelet poor plasma by Coagulation assay 1.02 02/16/2018 [facility] Prothrombin time (PT) in platelet poor plasma by coagulation assay Prothrombin time (PT) in platelet poor plasma by coagulation assay 12.6 11.9 - 14.5 02/16/2018 [facility] Vital Signs Vital Sign Value Date Comments Source Weight 141.2 08/17/2017 [facility] Height 68.8 08/17/2017 [facility]ng[facility] Salmeron Temperature Oral (F) 97.2 F 08/17/2017 [facility] Heart Rate 104 08/17/2017 [facility] Diastolic (mm Hg) 56 08/17/2017 [facility] Systolic (mm Hg) 80 08/17/2017 [facility] Respitory Rate 17 12/17/[address] [facility] Systolic (mm Hg) 126 12/17/[address] [facility] Diastolic (mm Hg) 81 12/17/[address] [facility] Diastolic (mm Hg) 67 12/17/[address] [facility] Systolic (mm Hg) 126 12/17/[address] [facility] Respitory Rate 16 12/17/[address] [facility] Respitory Rate 17 12/17/[address] [facility] Systolic (mm Hg) 111 12/17/[address] [facility] Diastolic (mm Hg) 74 12/17/[address] [facility] Heart Rate 83 12/13/[address] [facility] Temperature Oral (F) 97.7 F 12/13/[address] [facility] Weight 76.364 12/13/[address] [facility] BMI Calculated 28.02 12/13/[address] [facility] Height 165.1 cm 12/13/[address] [facility] Encounters Location Location Details Encounter Type Encounter Number Reason For Visit Attending Provider ADM Date DC Date Status Source [facility] Bedded Outpatient [id number] Jai Soria 12/17/2014 12/17/[address] [facility] Discharged Inpatient [id number] ANAID SAPP MD 02/16/2018 03/01/2018 [facility] [place] [facility] [id number] Earnestine Platt 02/15/2019 02/16/2019 [facility] Procedures Procedure Code Date Perfomer Comments Source Arthroscopy of knee with lateral meniscectomy [id number] [facility] Arthroscopy of knee with lateral meniscectomy [id number] [facility] Partial hysterectomy [id number] [facility] Repair of ligament of knee joint [id number] [facility] Repair of wrist [id number] [facility]
--- OUTSIDE RECORDS SUMMARY | 2019-03-19 12:23 | XMS REPORT ---
Author Author Nelson Quinn Organization [employer] Address Unknown Phone Unavailable Care Team Providers Care Rim Roller Setter Name Role Phone Nelson Quinn CP Unavailable Allergies No Known Allergies Problems Problem Type Condition Code Onset Dates Condition Status Assessment Lumbar radiculopathy M54.16 Active Problem Lumbar radiculopathy M54.16 Active Medications No Known Medications Results No Known Results Summary Purpose [employer] Submission
--- OUTSIDE RECORDS SUMMARY | 2019-03-19 12:23 | XMS REPORT | Summary of Care ---
Author Author [facility] Outpatient Imaging [facility] Outpatient Imaging [facility] Address Unknown Phone Unavailable Encounter GINNY Chung(FIN) [id number] Date(s): 02/15/19 - 02/15/19 [facility] [address] [facility], [address] [place] [phone] Discharge Disposition: Home or Self Care Attending Physician: Earnestine Platt MD Referring Physician: Earnestine Platt MD Vital Signs No data available for this section Problem List Condition Effective Dates Status Health Status Informant Acid Active reflux(Confirmed) Anxiety(Confirmed) Active Arthritis(Confirmed) Active Back pain(Confirmed) Active COPD(Confirmed) Resolved COPD - Chronic Active obstructive pulmonary disease(Confirmed) Emphysema of Active lung(Confirmed) GERD - Active Gastro-esophageal reflux disease(Confirmed) HTN Resolved (hypertension)(Confi rmed) Hypercholesteremia(C Resolved onfirmed) Hypertension(Confirm Active ed) Motion Active sickness(Confirmed) TIA(Confirmed) Resolved Allergies, Adverse Reactions, Alerts Substance Reaction Severity Status sulfa drugs Active iodine Active Medications No data available for this section Results No data available for this section Immunizations No data available for this section Procedures Procedure Date Related Diagnosis Body Site Status Arthroscopy of knee with lateral meniscectomy Completed Partial hysterectomy Completed Repair of ligament of knee joint Completed Repair of wrist Completed Social History Social History Type Response Smoking Status Former smoker; Type: Cigarettes; Exposure to Tobacco Smoke None; Cigarette Smoking Last 365 Days No; Reg Smoking Cessation Counseling No entered on: 12/13/14 Assessment and Plan No data available for this section
--- OUTSIDE RECORDS SUMMARY | 2019-03-19 12:23 | XMS REPORT | Summary of Care ---
Author Organization Unknown Address Unknown Phone Unavailable Encounter [facility]ALA) [id number] Date(s): 12/17/14 - 12/17/14 [facility] [address] Discharge Disposition: Home Physician Attending: Jai Soria MD Physician_Referring: Jai Soria MD Reason for Visit UNK Vital Signs 1 2 3 Most recent to oldest [Reference Range]: 165.1 cm (12/13/14 12:35 PM) Height 97.7 DegF (12/13/14 12:36 PM) Temperature Oral [96.4-99.1 DegF] 126 mmHg (12/17/14 8:30 AM) 126 mmHg (12/17/14 8:15 AM) 111 mmHg (12/17/14 8:00 AM) Systolic Blood Pressure [90-140 mmHg] 81 mmHg (12/17/14 8:30 AM) 67 mmHg (12/17/14 8:15 AM) 74 mmHg (12/17/14 8:00 AM) Diastolic Blood Pressure [60-90 mmHg] 17 BRMIN (12/17/14 8:30 AM) 16 BRMIN (12/17/14 8:15 AM) 17 BRMIN (12/17/14 8:00 AM) Respiratory Rate [14-20 BRMIN] 83 bpm (12/13/14 12:36 PM) Peripheral Pulse Rate [60-100 bpm] 76.364 kg (12/13/14 12:35 PM) Weight 28.02 m2 (12/13/14 12:35 PM) Body Mass Index Problem List Condition Effective Dates Status Health Status Informant Acid Active reflux(Confirmed) Anxiety(Confirmed) Active Arthritis(Confirmed) Active Back pain(Confirmed) Active COPD(Confirmed) Resolved COPD - Chronic Active obstructive pulmonary disease(Confirmed) Emphysema of Active lung(Confirmed) GERD - Active Gastro-esophageal reflux disease(Confirmed) HTN Resolved (hypertension)(Confi rmed) Hypercholesteremia(C Resolved onfirmed) Hypertension(Confirm Active ed) Motion Active sickness(Confirmed) TIA(Confirmed) Resolved Allergies, Adverse Reactions, Alerts Substance Reaction Severity Status iodine Active sulfa drugs Active Medications flumazenil 0.1 mg, Route: IVP, Q5Min, Dosing Weight 76.364, kg, PRN Other -See Comment, Sta rt date: 12/17/14 8:02:00, Duration: 30 day, Stop date: 01/16/15 8:01:00 Start Date: 12/17/14 Stop Date: 12/17/14 Status: Discontinued flumazenil 0.2 mg, Route: IVP, PRN, Dosing Weight 76.364, kg, PRN Other -See Comment, Start date: 12/17/14 8:02:00, Duration: 1 doses or times, Stop date: Limited # of rafi es Start Date: 12/17/14 Stop Date: 12/17/14 Status: Discontinued Lactated Ringers Injection IV 1000 mL 1,000 mL, Rate: 25 ml/hr, Infuse over: 40 hr, Route: IV, Dosing Weight 76.364 kg , Total Volume: 1,000, Start date: 12/17/14 6:55:00, Duration: 30 day, Stop date : 01/16/15 6:54:00 Start Date: 12/17/14 Stop Date: 12/17/14 Status: Discontinued naloxone 0.1 mg, Route: IVP, Q2MIN, Dosing Weight 76.364, kg, PRN Narcotic Reversal, Star t date: 12/17/14 8:02:00, Duration: 4 doses or times, Stop date: Limited # of ti mes Start Date: 12/17/14 Stop Date: 12/17/14 Status: Discontinued Zofran 4 mg, 2 mL, Route: IV, Drug form: INJ, ONCE, Dosing Weight 76.364, kg, Start fe e: 12/17/14 7:55:00, Stop date: 12/17/14 7:55:00 Notes: (Same as: Zofran) Start Date: 12/17/14 Stop Date: 12/17/14 Status: Completed Medications Administered During Your Visit No data available for this section Immunizations No data available for this section Procedures Procedure Type Body Site Date of Procedure Related Diagnosis Arthroscopy of knee with lateral meniscectomy Social History Social History Type Response Smoking Status Former smoker, Type: Cigarettes, Exposure to Tobacco Smoke None, Cigarette Smoking Last 365 Days No, Reg Smoking Cessation Counseling No
[2019-03-19] MEDS ORDERED: HYDROCODONE/APAP 5MG-325MG TAB PO ONE (13:45)
--- NOTE | 2019-03-19 15:46 | Diagnostic Imaging Report ---
Exam: Left knee series; 3 views dated 03/19/2019 History: Pain without mention of trauma Comparison: None available Findings: The bones are osteopenic. There is a suprapatellar joint effusion. No fracture or dislocation is seen. Mild medial compartment narrowing and and osteophytes are present. Impression: Bony osteopenia, degenerative changes and a suprapatellar joint effusion. Signed by: Dr. Raheel Gilliam DO on 03/19/2019 3:43 PM
--- NOTE | 2019-03-19 15:48 | Diagnostic Imaging Report ---
Exam: AP pelvis and coned-down images of the left hip; 3 views dated 03/19/2019 History: Pain Comparison: None available Findings: Bones are osteopenic. There is bilateral joint space narrowing involving both hips; left side greater than right. No fracture or dislocation is identified. Loss of all articular cartilage on the left is suspect. Impression: Severe degenerative arthritis involving both hips; left side greater than right. Signed by: Dr. Raheel Gilliam DO on 03/19/2019 3:45 PM
[2019-03-19 16:28] VITALS: BP 101/56
== END 2019-03-19 16:45 | disposition home or self-care (01) ==
LOC: ER 12:19
DX: M16.0 Bilateral primary osteoarthritis of hip (principal); M17.12 Unilateral primary osteoarthritis, left knee; M51.9 Unspecified thoracic, thoracolumbar and lumbosacral intervertebral disc disorder; I10 Essential (primary) hypertension; J44.9 Chronic obstructive pulmonary disease, unspecified; K21.9 Gastro-esophageal reflux disease without esophagitis; F41.9 Anxiety disorder, unspecified; F32.9 Major depressive disorder, single episode, unspecified; Z87.891 Personal history of nicotine dependence; Z79.52 Long term (current) use of systemic steroids; Z91.013 Allergy to seafood
CPT/HCPCS: 99283